=== PATIENT | male | born 1960 | race Two or more races ===

== ENCOUNTER 2021-05-26 10:29 | Inpatient (IN) | payer OTHER ==
[~2021-05-26] VITALS: Ht 175.3 cm; Wt 57.1 kg
[2021-05-26 11:33] LABS: Basophils # (auto) 0.1 10 ^3/uL (0-0.2); Basophils % (auto) 0.5 % (0.0-2.0); Eosinophils # (auto) 0 10 ^3/uL (0-0.8); Hematocrit 41.5 % (41.0-53.0); Hemoglobin 13.9 g/dL (13.5-17.5); Lymphocytes # (auto) 0.8 10 ^3/uL (0.4-5.4); Lymphocytes % (auto) 4.9 % (10.0-50.0); Mean Corpuscular Hemoglobin 32.2 pg (28.0-32.0); Mean Corpuscular Hgb Conc. 33.5 g/dL (32.0-36.0); Neutrophils # (auto) 14.6 10 ^3/uL (1.6-8.6); Neutrophils % (auto) 88.6 % (37.0-80.0); Red Blood Cells 4.32 10^6/uL (4.5-5.90); Red Cell Distribution Width 13.4 % (11.8-14.3); White Blood Cell 16.5 10^3/uL (4.4-10.8)
[2021-05-26 11:48] LABS: Albumin 1.8 g/dL (3.4-5.0); Calcium 8.5 mg/dL (8.5-10.1); Potassium 4.2 mmol/L (3.5-5.1)
[2021-05-26 12:09] LABS: BUN/Creatinine Ratio 10.6; Bilirubin, Total 0.9 mg/dL (0.2-1.0); Total Protein 7.2 g/dL (6.4-8.2)
[2021-05-26] MEDS ORDERED: VANCOMYCIN 1,500 MG in D5W 5% 250 ML IV ONE (12:45)
[2021-05-26] MEDS ORDERED: ASPirin 325 MG TAB PO ONE (12:45)
[2021-05-26] MEDS ORDERED: CLOPIDOGREL BISULFATE 75 MG TAB PO ONE (12:45)
[2021-05-26] MEDS ORDERED: PIPERACILLIN-TAZOB 3.375GM 100 ML IV ONE (12:45)
[2021-05-26] MEDS ORDERED: IOHEXOL 350 MG/ML 100ML IJ ONE (18:06)
[2021-05-26] MEDS ORDERED: NITROGLYCERIN 0.4 MG SL TAB SL PRN (18:15)
[2021-05-26] MEDS ORDERED: MORPHINE SULFATE INJECTION 2 MG/ML SYRG IV PRN (18:15)
[2021-05-26] MEDS ORDERED: VANCOMYCIN 1GM/250ML 500 ML IV ONE (22:50)
[2021-05-27] MEDS ORDERED: VANCOMYCIN PER PHARMACY 0 MG IV SCH (00:30)
[2021-05-27] MEDS: AZITHROMYCIN 500MG/ 250ML 250 ML IV SCH ×2 (02:59→22:30)
[2021-05-27 06:35] LABS: Urine Bacteria NONE SEEN /hpf (None Seen); Urine Blood Negative /uL (Negative); Urine Mucus FEW (None Seen); Urine WBC 4 /hpf (0 - 3)
[2021-05-27 06:40] LABS: Urine Specific Gravity > 1.050 (1.001-1.035)
[2021-05-27] MEDS: PIPERACILLIN-TAZOB 3.375GM 100 ML IV SCH ×4 (06:52→18:14)
[2021-05-27 07:30] LABS: Basophils # (auto) 0 10 ^3/uL (0-0.2); Basophils % (auto) 0.2 % (0.0-2.0); Eosinophils # (auto) 0 10 ^3/uL (0-0.8); Hematocrit 37.6 % (41.0-53.0); Hemoglobin 12.6 g/dL (13.5-17.5); Lymphocytes # (auto) 0.8 10 ^3/uL (0.4-5.4); Lymphocytes % (auto) 5.1 % (10.0-50.0); Mean Corpuscular Hgb Conc. 33.6 g/dL (32.0-36.0); Mean Corpuscular Volume 95.2 fL (80.0-100.0); Monocytes % (auto) 6.6 % (0.0-12.0); Neutrophils # (auto) 13.4 10 ^3/uL (1.6-8.6); Neutrophils % (auto) 88.1 % (37.0-80.0); Red Blood Cells 3.95 10^6/uL (4.5-5.90); Red Cell Distribution Width 13.4 % (11.8-14.3); White Blood Cell 15.2 10^3/uL (4.4-10.8)
[2021-05-27 07:52] LABS: BUN/Creatinine Ratio 11.6; Calcium 8.7 mg/dL (8.5-10.1); Potassium 4.2 mmol/L (3.5-5.1)
[2021-05-27] MEDS ORDERED: cefTRIAXone 1GM/50ML D5W 50 ML IV SCH (09:00)
[2021-05-27] MEDS: VANCOMYCIN 1GM/250ML 250 ML IV SCH ×2 (09:29→21:29)
[2021-05-27] MEDS ORDERED: AZITHROMYCIN 500MG/ 250ML 250 ML IV SCH (10:00)
[2021-05-27] MEDS ORDERED: SODIUM CHLORIDE 0.9% 1,000 ML IV ONE (10:30)
[2021-05-27] MEDS ORDERED: ONDANSETRON HCL 4 MG/2 ML VIAL IV ONE (11:30)
[2021-05-27] MEDS ORDERED: MORPHINE SULFATE INJECTION 2 MG/ML SYRG IV ONE (11:30)
[2021-05-27] MEDS ORDERED: MORPHINE SULFATE INJECTION 2 MG/ML SYRG ONE (11:31)
[2021-05-27] MEDS ORDERED: ONDANSETRON HCL 4 MG/2 ML VIAL ONE (11:31)
[2021-05-27 13:49] LABS: INR 1.37 (0.9-1.15); Partial Thromboplastin Time 27.8 sec (23.6-33.0)
[2021-05-27] MEDS ORDERED: DIGOXIN (250MCG/ML) 2 ML AMPULE IV ONE (15:00)
[2021-05-27] MEDS: FUROSEMIDE 40 MG/4 ML VIAL IV SCH (18:14)
[2021-05-27] MEDS ORDERED: HYDROcodone-ACET 10/325MG TAB PO PRN (18:30)
[2021-05-28] MEDS: PIPERACILLIN-TAZOB 3.375GM 100 ML IV SCH ×4 (01:00→18:11)
[2021-05-28 06:41] LABS: Basophils # (auto) 0 10 ^3/uL (0-0.2); Basophils % (auto) 0.2 % (0.0-2.0); Eosinophils # (auto) 0 10 ^3/uL (0-0.8); Hematocrit 33.1 % (41.0-53.0); Lymphocytes # (auto) 1.1 10 ^3/uL (0.4-5.4); Mean Corpuscular Hemoglobin 31.3 pg (28.0-32.0); Mean Corpuscular Hgb Conc. 33.1 g/dL (32.0-36.0); Mean Corpuscular Volume 94.7 fL (80.0-100.0); Monocytes # (auto) 0.9 10 ^3/uL (0-1.3); Monocytes % (auto) 5.9 % (0.0-12.0); Neutrophils # (auto) 13.2 10 ^3/uL (1.6-8.6); Neutrophils % (auto) 86.9 % (37.0-80.0); Red Cell Distribution Width 13.9 % (11.8-14.3); White Blood Cell 15.2 10^3/uL (4.4-10.8)
[2021-05-28 06:52] LABS: BUN/Creatinine Ratio 15.1; Calcium 7.8 mg/dL (8.5-10.1); Potassium 3.7 mmol/L (3.5-5.1)
[2021-05-28] MEDS: NOREPINEPHRINE 8 MG/250ML KIT 250 ML IV SCH ×3 (08:50→20:45)
[2021-05-28] MEDS: FUROSEMIDE 40 MG/4 ML VIAL IV SCH ×2 (08:51→18:23)
[2021-05-28] MEDS: VANCOMYCIN 1GM/250ML 250 ML IV SCH ×2 (09:10→21:00)
[2021-05-28] MEDS ORDERED: DOBUTamine 1000MCG/ML 250 ML IV SCH (14:30)
[2021-05-28] MEDS ORDERED: FUROSEMIDE 20 MG/2 ML VIAL IV ONE (14:45)
[2021-05-28] MEDS: DOBUTamine 1000MCG/ML 250 ML IV SCH (14:55)
[2021-05-28] MEDS: ACETAMINOPHEN 325 MG TAB PO PRN (20:51)
[2021-05-29] MEDS: PIPERACILLIN-TAZOB 3.375GM 100 ML IV SCH ×4 (05:59→17:58)
[2021-05-29] MEDS: FUROSEMIDE 40 MG/4 ML VIAL IV SCH ×2 (05:59→17:58)
[2021-05-29 06:40] LABS: Basophils # (auto) 0 10 ^3/uL (0-0.2); Basophils % (auto) 0.2 % (0.0-2.0); Eosinophils # (auto) 0 10 ^3/uL (0-0.8); Eosinophils % (auto) 0.1 % (0.0-7.0); Hemoglobin 12.8 g/dL (13.5-17.5); Lymphocytes # (auto) 0.7 10 ^3/uL (0.4-5.4); Mean Corpuscular Hemoglobin 31.6 pg (28.0-32.0); Mean Corpuscular Hgb Conc. 33.7 g/dL (32.0-36.0); Mean Corpuscular Volume 93.9 fL (80.0-100.0); Monocytes # (auto) 0.8 10 ^3/uL (0-1.3); Monocytes % (auto) 5.6 % (0.0-12.0); Neutrophils # (auto) 12.9 10 ^3/uL (1.6-8.6); Neutrophils % (auto) 89.1 % (37.0-80.0); Red Blood Cells 4.05 10^6/uL (4.5-5.90); Red Cell Distribution Width 13.5 % (11.8-14.3); White Blood Cell 14.5 10^3/uL (4.4-10.8)
[2021-05-29 07:02] LABS: BUN/Creatinine Ratio 12.2; Calcium 8.6 mg/dL (8.5-10.1)
[2021-05-29] MEDS: VANCOMYCIN 1GM/250ML 250 ML IV SCH ×2 (08:59→21:18)
[2021-05-29] MEDS ORDERED: SPIRONOLACTONE 25 MG TAB PO ONE (10:00)
[2021-05-29] MEDS ORDERED: DIGOXIN (250MCG/ML) 2 ML AMPULE IV ONE (10:00)
[2021-05-29] MEDS: NOREPINEPHRINE 8 MG/250ML KIT 250 ML IV SCH (10:27)
[2021-05-29] MEDS ORDERED: POTASSIUM CHL 20 Meq TABLET PO ONE (11:00)
[2021-05-29] MEDS ORDERED: LIDOCAINE 1% (LOCAL ANESTH.) PF 5ml SDV ID ONE (13:15)
[2021-05-29] MEDS: DOBUTamine 1000MCG/ML 250 ML IV SCH (15:24)
[2021-05-29] MEDS: SODIUM CHLOR 0.9% PF (SALINE LOCK) 10ML VIAL/SYR IV SCH (22:05)
[2021-05-30] MEDS: PIPERACILLIN-TAZOB 3.375GM 100 ML IV SCH ×4 (00:35→18:16)
[2021-05-30] MEDS: ACETAMINOPHEN 325 MG TAB PO PRN ×2 (00:36→23:06)
[2021-05-30] MEDS: FUROSEMIDE 40 MG/4 ML VIAL IV SCH ×2 (06:00→18:17)
[2021-05-30 07:23] LABS: Basophils # (auto) 0 10 ^3/uL (0-0.2); Basophils % (auto) 0.3 % (0.0-2.0); Eosinophils # (auto) 0 10 ^3/uL (0-0.8); Eosinophils % (auto) 0.4 % (0.0-7.0); Hematocrit 37.9 % (41.0-53.0); Hemoglobin 12.6 g/dL (13.5-17.5); Lymphocytes # (auto) 0.8 10 ^3/uL (0.4-5.4); Mean Corpuscular Hemoglobin 31.5 pg (28.0-32.0); Mean Corpuscular Hgb Conc. 33.2 g/dL (32.0-36.0); Mean Corpuscular Volume 94.8 fL (80.0-100.0); Monocytes # (auto) 0.7 10 ^3/uL (0-1.3); Neutrophils # (auto) 7.4 10 ^3/uL (1.6-8.6); Neutrophils % (auto) 82.3 % (37.0-80.0); Red Cell Distribution Width 13.6 % (11.8-14.3)
[2021-05-30 07:39] LABS: BUN/Creatinine Ratio 9.9; Calcium 7.9 mg/dL (8.5-10.1)
[2021-05-30 08:15] LABS: Potassium 2.9 mmol/L (3.5-5.1)
[2021-05-30] MEDS: VANCOMYCIN 1GM/250ML 250 ML IV SCH ×2 (09:00→20:59)
[2021-05-30] MEDS: SODIUM CHLOR 0.9% PF (SALINE LOCK) 10ML VIAL/SYR IV SCH ×2 (09:29→22:00)
[2021-05-30] MEDS ORDERED: POTASSIUM CHL 20 Meq TABLET PO ONE (09:30)
[2021-05-30] MEDS: POTASSIUM CHL 20MEQ/100ML 100 ML IV SCH ×2 (10:00→11:30)
[2021-05-30] MEDS: DOBUTamine 1000MCG/ML 250 ML IV SCH (14:49)
[2021-05-30] MEDS: NOREPINEPHRINE 8 MG/250ML KIT 250 ML IV SCH (20:45)
[2021-05-31] MEDS: PIPERACILLIN-TAZOB 3.375GM 100 ML IV SCH ×5 (01:30→23:17)
[2021-05-31] MEDS: FUROSEMIDE 40 MG/4 ML VIAL IV SCH ×2 (06:30→18:58)
[2021-05-31 07:19] LABS: Basophils # (auto) 0.1 10 ^3/uL (0-0.2); Basophils % (auto) 0.5 % (0.0-2.0); Eosinophils # (auto) 0.1 10 ^3/uL (0-0.8); Eosinophils % (auto) 1.3 % (0.0-7.0); Hemoglobin 14.1 g/dL (13.5-17.5); Lymphocytes # (auto) 0.9 10 ^3/uL (0.4-5.4); Mean Corpuscular Hemoglobin 31.3 pg (28.0-32.0); Mean Corpuscular Hgb Conc. 33.6 g/dL (32.0-36.0); Mean Corpuscular Volume 93.2 fL (80.0-100.0); Monocytes % (auto) 10.8 % (0.0-12.0); Neutrophils # (auto) 7.6 10 ^3/uL (1.6-8.6); Neutrophils % (auto) 78.4 % (37.0-80.0); Red Blood Cells 4.51 10^6/uL (4.5-5.90); Red Cell Distribution Width 13.6 % (11.8-14.3); White Blood Cell 9.7 10^3/uL (4.4-10.8)
[2021-05-31 07:32] LABS: Calcium 8.6 mg/dL (8.5-10.1)
[2021-05-31 07:36] LABS: BUN/Creatinine Ratio 10.7
[2021-05-31] MEDS: VANCOMYCIN 1GM/250ML 250 ML IV SCH ×2 (09:38→21:09)
[2021-05-31] MEDS: SODIUM CHLOR 0.9% PF (SALINE LOCK) 10ML VIAL/SYR IV SCH ×2 (10:24→21:23)
[2021-05-31] MEDS ORDERED: IOHEXOL 300 MG/ML 100ML BOTTLE IJ ONE ×2 (14:00→17:39)
[2021-05-31] MEDS: DOBUTamine 1000MCG/ML 250 ML IV SCH (14:45)
[2021-05-31] MEDS ORDERED: FUROSEMIDE 20 MG/2 ML VIAL ONE (18:53)
[2021-05-31] MEDS: NOREPINEPHRINE 8 MG/250ML KIT 250 ML IV SCH (20:45)
[2021-06-01] MEDS ORDERED: FUROSEMIDE 20 MG/2 ML VIAL ONE (04:55)
[2021-06-01] MEDS: FUROSEMIDE 40 MG/4 ML VIAL IV SCH ×2 (05:28→18:52)
[2021-06-01] MEDS: PIPERACILLIN-TAZOB 3.375GM 100 ML IV SCH ×3 (05:29→22:09)
[2021-06-01 08:09] LABS: Basophils # (auto) 0.1 10 ^3/uL (0-0.2); Basophils % (auto) 0.9 % (0.0-2.0); Eosinophils # (auto) 0.2 10 ^3/uL (0-0.8); Eosinophils % (auto) 2.1 % (0.0-7.0); Hematocrit 44.7 % (41.0-53.0); Hemoglobin 14.8 g/dL (13.5-17.5); Lymphocytes # (auto) 0.9 10 ^3/uL (0.4-5.4); Lymphocytes % (auto) 8.2 % (10.0-50.0); Mean Corpuscular Hgb Conc. 33.1 g/dL (32.0-36.0); Mean Corpuscular Volume 93.7 fL (80.0-100.0); Monocytes # (auto) 1.1 10 ^3/uL (0-1.3); Monocytes % (auto) 10.3 % (0.0-12.0); Neutrophils # (auto) 8.5 10 ^3/uL (1.6-8.6); Neutrophils % (auto) 78.5 % (37.0-80.0); Red Blood Cells 4.77 10^6/uL (4.5-5.90); Red Cell Distribution Width 13.6 % (11.8-14.3); White Blood Cell 10.8 10^3/uL (4.4-10.8)
[2021-06-01 08:30] LABS: Calcium 8.5 mg/dL (8.5-10.1); Potassium 4.4 mmol/L (3.5-5.1)
[2021-06-01 08:33] LABS: BUN/Creatinine Ratio 7.2
[2021-06-01] MEDS: VANCOMYCIN 1GM/250ML 250 ML IV SCH (09:00)
[2021-06-01] MEDS: SODIUM CHLOR 0.9% PF (SALINE LOCK) 10ML VIAL/SYR IV SCH ×2 (09:33→22:09)
[2021-06-01] MEDS ORDERED: HEPARIN SODIUM (PORCINE) 5000 UNITS/ML 1ML VIAL IV ONE ×2 (10:45→19:15)
[2021-06-01 11:48] LABS: INR 1.14 (0.9-1.15); Partial Thromboplastin Time 25.4 sec (23.6-33.0)
[2021-06-01] MEDS: HEPARIN DRIP/D5W 100UNITS/ML 250 ML IV SCH (11:51)
[2021-06-01] MEDS: MIDODRINE HCL 10 MG TAB PO SCH ×2 (12:32→18:35)
[2021-06-01 13:23] LABS: Basophils # (auto) 0.1 10 ^3/uL (0-0.2); Eosinophils # (auto) 0.2 10 ^3/uL (0-0.8); Hematocrit 46.1 % (41.0-53.0); Hemoglobin 15.2 g/dL (13.5-17.5); Lymphocytes % (auto) 9.5 % (10.0-50.0); Mean Corpuscular Hemoglobin 30.7 pg (28.0-32.0); Monocytes % (auto) 9.8 % (0.0-12.0); Neutrophils # (auto) 8.1 10 ^3/uL (1.6-8.6); Neutrophils % (auto) 77.7 % (37.0-80.0); Nucleated Red Blood Cells % 0.1 %; Red Blood Cells 4.95 10^6/uL (4.5-5.90); Red Cell Distribution Width 13.6 % (11.8-14.3); White Blood Cell 10.4 10^3/uL (4.4-10.8)
[2021-06-01] MEDS: DOBUTamine 1000MCG/ML 250 ML IV SCH ×2 (14:47→23:19)
[2021-06-01 18:34] LABS: INR 1.12 (0.9-1.15); Partial Thromboplastin Time 25.4 sec (23.6-33.0)
[2021-06-01] MEDS: NOREPINEPHRINE 8 MG/250ML KIT 250 ML IV SCH (19:35)
[2021-06-02] VITALS (53 sets, daily range): BP systolic 77–139; BP diastolic 34–93
[2021-06-02 02:22] LABS: INR 1.12 (0.9-1.15); Partial Thromboplastin Time 24.7 sec (23.6-33.0)
[2021-06-02] MEDS: MIDODRINE HCL 10 MG TAB PO SCH ×3 (06:00→18:00)
[2021-06-02] MEDS: PIPERACILLIN-TAZOB 3.375GM 100 ML IV SCH ×3 (06:28→21:55)
[2021-06-02] MEDS: FUROSEMIDE 40 MG/4 ML VIAL IV SCH ×2 (06:29→18:00)
[2021-06-02] MEDS ORDERED: SUCCINYLCHOLINE CHLORIDE 20 MG/ML 10ML VIAL IV ONE (06:53)
[2021-06-02] MEDS ORDERED: ROCURONIUM 10MG/ML 10ML VIAL IV ONE (06:53)
[2021-06-02] MEDS ORDERED: HYDROmorphone HCL 2 MG/ML VL ONE (07:11)
[2021-06-02] MEDS ORDERED: DexAMETHasone SOD PHOS 10MG/1ML VIAL INJ ONE (07:12)
[2021-06-02] MEDS ORDERED: fentaNYL CITRATE 10 ML ONE (07:12)
[2021-06-02] MEDS ORDERED: MIDAZOLAM HCL 2MG/2ML 2ml VIAL (1mg/ml) ONE ×2 (07:12)
[2021-06-02 07:48] LABS: Basophils # (auto) 0.1 10 ^3/uL (0-0.2); Basophils % (auto) 0.8 % (0.0-2.0); Eosinophils # (auto) 0.2 10 ^3/uL (0-0.8); Eosinophils % (auto) 2.5 % (0.0-7.0); Hematocrit 43.9 % (41.0-53.0); Hemoglobin 14.4 g/dL (13.5-17.5); Lymphocytes # (auto) 0.9 10 ^3/uL (0.4-5.4); Lymphocytes % (auto) 9.8 % (10.0-50.0); Mean Corpuscular Hemoglobin 30.7 pg (28.0-32.0); Mean Corpuscular Hgb Conc. 32.9 g/dL (32.0-36.0); Mean Corpuscular Volume 93.6 fL (80.0-100.0); Monocytes # (auto) 0.9 10 ^3/uL (0-1.3); Monocytes % (auto) 9.5 % (0.0-12.0); Neutrophils # (auto) 7.4 10 ^3/uL (1.6-8.6); Neutrophils % (auto) 77.4 % (37.0-80.0); Red Cell Distribution Width 13.7 % (11.8-14.3); White Blood Cell 9.5 10^3/uL (4.4-10.8)
[2021-06-02 08:04] LABS: INR 1.08 (0.9-1.15); Partial Thromboplastin Time 22.1 sec (23.6-33.0)
[2021-06-02 08:13] LABS: Calcium 8.7 mg/dL (8.5-10.1); Potassium 3.8 mmol/L (3.5-5.1)
[2021-06-02 08:16] LABS: BUN/Creatinine Ratio 7.6
[2021-06-02] MEDS ORDERED: BUPIVACAINE 0.25% INJ 50ML VIAL ONE (09:51)
[2021-06-02] MEDS: SODIUM CHLOR 0.9% PF (SALINE LOCK) 10ML VIAL/SYR IV SCH ×2 (10:00→21:55)
[2021-06-02] MEDS: HEPARIN DRIP/D5W 100UNITS/ML 250 ML IV SCH ×2 (10:34→19:22)
[2021-06-02] MEDS ORDERED: POVIDONE IODINE 10 % TOPICAL OINT 30GM TOP ONE (10:57)
[2021-06-02] MEDS ORDERED: NOREPINEPHRINE 8 MG/250ML KIT 250 ML IV ONE ×3 (11:04→21:26)
[2021-06-02 16:32] LABS: Basophils # (auto) 0 10 ^3/uL (0-0.2); Basophils % (auto) 0.2 % (0.0-2.0); Lymphocytes # (auto) 0.5 10 ^3/uL (0.4-5.4); Lymphocytes % (auto) 2.4 % (10.0-50.0); Mean Corpuscular Volume 92.9 fL (80.0-100.0); Neutrophils % (auto) 95.7 % (37.0-80.0); Red Cell Distribution Width 13.9 % (11.8-14.3)
[2021-06-02 16:34] LABS: Eosinophils # (auto) 0 10 ^3/uL (0-0.8); Eosinophils % (auto) 0.1 % (0.0-7.0); Hematocrit 42.9 % (41.0-53.0); Hemoglobin 14.1 g/dL (13.5-17.5); Mean Corpuscular Hemoglobin 30.4 pg (28.0-32.0); Mean Corpuscular Hgb Conc. 32.7 g/dL (32.0-36.0); Monocytes # (auto) 0.4 10 ^3/uL (0-1.3); Monocytes % (auto) 1.6 % (0.0-12.0); Neutrophils # (auto) 20.9 10 ^3/uL (1.6-8.6); Red Blood Cells 4.62 10^6/uL (4.5-5.90); White Blood Cell 21.8 10^3/uL (4.4-10.8)
[2021-06-02 16:48] LABS: Albumin 1.9 g/dL (3.4-5.0); BUN/Creatinine Ratio 8.7; Calcium 8.5 mg/dL (8.5-10.1); Potassium 4.1 mmol/L (3.5-5.1)
[2021-06-02 16:51] LABS: Bilirubin, Total 0.6 mg/dL (0.2-1.0)
[2021-06-02] MEDS: MIDAZOLAM DRIP 50 mg/50mL 50 ML IV SCH (16:52)
[2021-06-02] MEDS: fentaNYL Drip 2500mCg/250mlNS 250 ML IV SCH (16:52)
[2021-06-02] MEDS ORDERED: FUROSEMIDE 40 MG/4 ML VIAL ONE (19:27)
[2021-06-02] MEDS ORDERED: DOBUTamine 1000MCG/ML 250 ML IV ONE (21:26)
[2021-06-02] MEDS ORDERED: PIPERACILLIN-TAZOB 3.375GM 100 ML IV ONE (21:27)
[2021-06-02] MEDS: NOREPINEPHRINE 8 MG/250ML KIT 250 ML IV SCH (21:55)
[2021-06-03] VITALS (103 sets, daily range): BP systolic 79–141; BP diastolic 25–87
[2021-06-03] MEDS: fentaNYL Drip 2500mCg/250mlNS 250 ML IV SCH ×2 (01:37→13:38)
[2021-06-03 02:01] LABS: INR 1.23 (0.9-1.15)
[2021-06-03] MEDS: DOBUTamine 1000MCG/ML 250 ML IV SCH (02:01)
[2021-06-03] MEDS: MIDAZOLAM DRIP 50 mg/50mL 50 ML IV SCH (02:03)
[2021-06-03 02:04] LABS: Partial Thromboplastin Time > 139.0 sec (23.6-33.0)
[2021-06-03] MEDS ORDERED: NOREPINEPHRINE 8 MG/250ML KIT 250 ML IV ONE (03:03)
[2021-06-03 04:21] LABS: Basophils # (auto) 0 10 ^3/uL (0-0.2); Basophils % (auto) 0.1 % (0.0-2.0); Eosinophils # (auto) 0 10 ^3/uL (0-0.8); Hematocrit 32.8 % (41.0-53.0); Hemoglobin 10.7 g/dL (13.5-17.5); Lymphocytes # (auto) 0.9 10 ^3/uL (0.4-5.4); Lymphocytes % (auto) 5.8 % (10.0-50.0); Mean Corpuscular Hemoglobin 30.5 pg (28.0-32.0); Mean Corpuscular Hgb Conc. 32.5 g/dL (32.0-36.0); Monocytes # (auto) 1.1 10 ^3/uL (0-1.3); Monocytes % (auto) 7.1 % (0.0-12.0); Neutrophils # (auto) 13.1 10 ^3/uL (1.6-8.6); Red Blood Cells 3.49 10^6/uL (4.5-5.90); Red Cell Distribution Width 13.9 % (11.8-14.3); White Blood Cell 15.1 10^3/uL (4.4-10.8)
[2021-06-03 04:40] LABS: Potassium 3.4 mmol/L (3.5-5.1)
[2021-06-03 04:48] LABS: BUN/Creatinine Ratio 10.1; Calcium 6.6 mg/dL (8.5-10.1)
[2021-06-03] MEDS ORDERED: FUROSEMIDE 40 MG/4 ML VIAL ONE (05:45)
[2021-06-03] MEDS ORDERED: PIPERACILLIN-TAZOB 3.375GM 100 ML IV ONE (05:45)
[2021-06-03] MEDS: PIPERACILLIN-TAZOB 3.375GM 100 ML IV SCH ×3 (06:10→22:04)
[2021-06-03] MEDS: FUROSEMIDE 40 MG/4 ML VIAL IV SCH ×2 (06:11→17:33)
[2021-06-03 08:09] LABS: INR 1.27 (0.9-1.15); Partial Thromboplastin Time 59.8 sec (23.6-33.0)
[2021-06-03 09:48] LABS: Hemoglobin 11.7 g/dL (13.5-17.5)
[2021-06-03] MEDS: PANTOPRAZOLE 40 MG/10 ML VIAL INJ IV SCH (12:01)
[2021-06-03] MEDS: SODIUM CHLOR 0.9% PF (SALINE LOCK) 10ML VIAL/SYR IV SCH ×2 (12:02→22:04)
[2021-06-03] MEDS: MIDODRINE HCL 10 MG TAB PO SCH ×2 (12:09→17:33)
[2021-06-03 14:03] LABS: INR 1.16 (0.9-1.15); Partial Thromboplastin Time 67.9 sec (23.6-33.0)
[2021-06-03] MEDS ORDERED: POTASSIUM CHL 20 Meq TABLET PO ONE (14:15)
[2021-06-03] MEDS ORDERED: POTASSIUM EFFERVESENT TAB 25 MEQ GT ONE (15:45)
[2021-06-03] MEDS: NOREPINEPHRINE 8 MG/250ML KIT 250 ML IV SCH (16:51)
[2021-06-03 21:05] LABS: INR 1.08 (0.9-1.15); Partial Thromboplastin Time 24.8 sec (23.6-33.0)
[2021-06-03] MEDS: ALBUMIN 25% 100 ML IV SCH (22:05)
[2021-06-03 22:48] LABS: INR 1.07 (0.9-1.15); Partial Thromboplastin Time 24.2 sec (23.6-33.0)
[2021-06-03] MEDS ORDERED: HEPARIN SODIUM (PORCINE) 5000 UNITS/ML 1ML VIAL ONE (23:14)
[2021-06-04] VITALS (103 sets, daily range): BP systolic 84–134; BP diastolic 40–78
[2021-06-04] MEDS: HEPARIN DRIP/D5W 100UNITS/ML 250 ML IV SCH ×2 (00:29→07:00)
[2021-06-04] MEDS: NOREPINEPHRINE 8 MG/250ML KIT 250 ML IV SCH (00:30)
[2021-06-04 05:23] LABS: Basophils # (auto) 0.1 10 ^3/uL (0-0.2); Basophils % (auto) 0.4 % (0.0-2.0); Eosinophils # (auto) 0.1 10 ^3/uL (0-0.8); Eosinophils % (auto) 0.5 % (0.0-7.0); Hematocrit 28.3 % (41.0-53.0); Hemoglobin 9.1 g/dL (13.5-17.5); Lymphocytes # (auto) 1.2 10 ^3/uL (0.4-5.4); Lymphocytes % (auto) 10.1 % (10.0-50.0); Mean Corpuscular Hemoglobin 30.3 pg (28.0-32.0); Mean Corpuscular Hgb Conc. 32.2 g/dL (32.0-36.0); Mean Corpuscular Volume 94.3 fL (80.0-100.0); Monocytes % (auto) 8.5 % (0.0-12.0); Neutrophils # (auto) 9.6 10 ^3/uL (1.6-8.6); Neutrophils % (auto) 80.5 % (37.0-80.0); Red Cell Distribution Width 13.7 % (11.8-14.3); White Blood Cell 11.9 10^3/uL (4.4-10.8)
[2021-06-04 05:42] LABS: BUN/Creatinine Ratio 13.7
[2021-06-04] MEDS: PIPERACILLIN-TAZOB 3.375GM 100 ML IV SCH ×3 (05:44→22:05)
[2021-06-04] MEDS: MIDODRINE HCL 10 MG TAB PO SCH ×3 (05:45→18:02)
[2021-06-04] MEDS: FUROSEMIDE 40 MG/4 ML VIAL IV SCH (05:45)
[2021-06-04 06:05] LABS: Partial Thromboplastin Time > 139.0 sec (23.6-33.0)
[2021-06-04] MEDS: PANTOPRAZOLE 40 MG/10 ML VIAL INJ IV SCH (10:10)
[2021-06-04] MEDS: ALBUMIN 25% 100 ML IV SCH ×2 (10:10→22:06)
[2021-06-04] MEDS: SODIUM CHLOR 0.9% PF (SALINE LOCK) 10ML VIAL/SYR IV SCH ×2 (10:17→22:04)
[2021-06-04] MEDS: MIDAZOLAM DRIP 50 mg/50mL 50 ML IV SCH (13:33)
[2021-06-04 13:41] LABS: INR 1.21 (0.9-1.15)
[2021-06-04] MEDS ORDERED: ONDANSETRON HCL 4 MG/2 ML VIAL IV PRN (13:45)
[2021-06-04 13:55] LABS: Partial Thromboplastin Time > 139.0 sec (23.6-33.0)
[2021-06-04] MEDS: ACETAMINOPHEN 325 MG TAB PO PRN ×2 (13:56→18:30)
[2021-06-04 16:09] LABS: Hematocrit 20.6 % (41.0-53.0)
[2021-06-04] MEDS: MORPHINE SULFATE INJECTION 2 MG/ML SYRG IV PRN (17:49)
[2021-06-04] MEDS: DOBUTamine 1000MCG/ML 250 ML IV SCH (18:03)
[2021-06-05] VITALS (98 sets, daily range): BP systolic 95–135; BP diastolic 40–63
[2021-06-05] MEDS: MORPHINE SULFATE INJECTION 2 MG/ML SYRG IV PRN ×2 (04:04→15:33)
[2021-06-05 04:44] LABS: Basophils # (auto) 0.1 10 ^3/uL (0-0.2); Basophils % (auto) 0.9 % (0.0-2.0); Eosinophils # (auto) 0.1 10 ^3/uL (0-0.8); Eosinophils % (auto) 0.9 % (0.0-7.0); Hematocrit 23.6 % (41.0-53.0); Hemoglobin 8.1 g/dL (13.5-17.5); Lymphocytes # (auto) 0.5 10 ^3/uL (0.4-5.4); Lymphocytes % (auto) 5.5 % (10.0-50.0); Mean Corpuscular Hemoglobin 32.1 pg (28.0-32.0); Mean Corpuscular Hgb Conc. 34.5 g/dL (32.0-36.0); Mean Corpuscular Volume 92.9 fL (80.0-100.0); Monocytes # (auto) 0.5 10 ^3/uL (0-1.3); Monocytes % (auto) 6.1 % (0.0-12.0); Neutrophils # (auto) 7.8 10 ^3/uL (1.6-8.6); Neutrophils % (auto) 86.6 % (37.0-80.0); Red Blood Cells 2.54 10^6/uL (4.5-5.90)
[2021-06-05 05:18] LABS: BUN/Creatinine Ratio 12.5; Potassium 3.4 mmol/L (3.5-5.1)
[2021-06-05 05:19] LABS: Calcium 7.8 mg/dL (8.5-10.1)
[2021-06-05] MEDS: MIDODRINE HCL 10 MG TAB PO SCH ×3 (06:08→18:04)
[2021-06-05] MEDS: PIPERACILLIN-TAZOB 3.375GM 100 ML IV SCH ×4 (06:09→22:25)
[2021-06-05] MEDS: DOBUTamine 1000MCG/ML 250 ML IV SCH (06:33)
[2021-06-05] MEDS: NOREPINEPHRINE 8 MG/250ML KIT 250 ML IV SCH (06:34)
[2021-06-05] MEDS: HEPARIN DRIP/D5W 100UNITS/ML 250 ML IV SCH (08:26)
[2021-06-05] MEDS: PANTOPRAZOLE 40 MG/10 ML VIAL INJ IV SCH (10:14)
[2021-06-05] MEDS: FUROSEMIDE 40 MG/4 ML VIAL IV SCH (10:14)
[2021-06-05] MEDS: SODIUM CHLOR 0.9% PF (SALINE LOCK) 10ML VIAL/SYR IV SCH ×2 (10:16→22:25)
[2021-06-05] MEDS: ALBUMIN 25% 100 ML IV SCH ×2 (10:16→22:25)
[2021-06-05 11:57] LABS: Hemoglobin 7.9 g/dL (13.5-17.5)
[2021-06-05 12:00] LABS: Hematocrit 22.5 % (41.0-53.0)
[2021-06-05] MEDS: MIDAZOLAM DRIP 50 mg/50mL 50 ML IV SCH (13:20)
[2021-06-05] MEDS: fentaNYL Drip 2500mCg/250mlNS 250 ML IV SCH (13:20)
[2021-06-05] MEDS ORDERED: VANCOMYCIN 1GM/250ML 250 ML IV ONE (14:45)
[2021-06-05 14:55] LABS: INR 1.13 (0.9-1.15); Partial Thromboplastin Time 50.4 sec (23.6-33.0)
[2021-06-05 21:42] LABS: INR 1.12 (0.9-1.15); Partial Thromboplastin Time 67.8 sec (23.6-33.0)
[2021-06-06] VITALS (93 sets, daily range): BP systolic 90–126; BP diastolic 41–57
[2021-06-06 00:33] LABS: Hemoglobin 7.3 g/dL (13.5-17.5)
[2021-06-06] MEDS: HEPARIN DRIP/D5W 100UNITS/ML 250 ML IV SCH (04:00)
[2021-06-06 04:16] LABS: Lymphocytes # (auto) 0.6 10 ^3/uL (0.4-5.4); Mean Corpuscular Hgb Conc. 34.4 g/dL (32.0-36.0); Monocytes # (auto) 0.5 10 ^3/uL (0-1.3)
[2021-06-06 04:18] LABS: Basophils # (auto) 0 10 ^3/uL (0-0.2); Basophils % (auto) 0.4 % (0.0-2.0); Eosinophils # (auto) 0.2 10 ^3/uL (0-0.8); Eosinophils % (auto) 2.2 % (0.0-7.0); Hematocrit 20.7 % (41.0-53.0); Hemoglobin 7.1 g/dL (13.5-17.5); Lymphocytes % (auto) 8.6 % (10.0-50.0); Mean Corpuscular Hemoglobin 31.8 pg (28.0-32.0); Mean Corpuscular Volume 92.4 fL (80.0-100.0); Monocytes % (auto) 6.7 % (0.0-12.0); Neutrophils # (auto) 6.2 10 ^3/uL (1.6-8.6); Neutrophils % (auto) 82.1 % (37.0-80.0); Red Blood Cells 2.24 10^6/uL (4.5-5.90); Red Cell Distribution Width 13.7 % (11.8-14.3); White Blood Cell 7.5 10^3/uL (4.4-10.8)
[2021-06-06 04:35] LABS: INR 1.11 (0.9-1.15); Partial Thromboplastin Time 68.7 sec (23.6-33.0)
[2021-06-06 04:48] LABS: Potassium 3.4 mmol/L (3.5-5.1)
[2021-06-06 05:02] LABS: BUN/Creatinine Ratio 11.1; Calcium 8.3 mg/dL (8.5-10.1)
[2021-06-06] MEDS: MIDODRINE HCL 10 MG TAB PO SCH ×3 (06:28→18:00)
[2021-06-06] MEDS: PIPERACILLIN-TAZOB 3.375GM 100 ML IV SCH ×3 (06:28→22:01)
[2021-06-06] MEDS: PANTOPRAZOLE 40 MG/10 ML VIAL INJ IV SCH (09:40)
[2021-06-06] MEDS: ALBUMIN 25% 100 ML IV SCH (09:40)
[2021-06-06] MEDS: FUROSEMIDE 40 MG/4 ML VIAL IV SCH (09:40)
[2021-06-06] MEDS: SODIUM CHLOR 0.9% PF (SALINE LOCK) 10ML VIAL/SYR IV SCH ×2 (09:41→22:00)
[2021-06-06 11:53] LABS: Basophils # (auto) 0 10 ^3/uL (0-0.2); Eosinophils # (auto) 0.2 10 ^3/uL (0-0.8); Hematocrit 21.5 % (41.0-53.0); Hemoglobin 7.4 g/dL (13.5-17.5); Lymphocytes # (auto) 0.6 10 ^3/uL (0.4-5.4); Mean Corpuscular Hemoglobin 31.6 pg (28.0-32.0); Monocytes # (auto) 0.7 10 ^3/uL (0-1.3); Red Cell Distribution Width 13.8 % (11.8-14.3); White Blood Cell 8.5 10^3/uL (4.4-10.8)
[2021-06-06 11:56] LABS: Basophils % (auto) 0.4 % (0.0-2.0); Eosinophils % (auto) 2.6 % (0.0-7.0); Lymphocytes % (auto) 6.7 % (10.0-50.0); Mean Corpuscular Hgb Conc. 34.4 g/dL (32.0-36.0); Mean Corpuscular Volume 92.1 fL (80.0-100.0); Monocytes % (auto) 8.1 % (0.0-12.0); Neutrophils % (auto) 82.2 % (37.0-80.0); Red Blood Cells 2.34 10^6/uL (4.5-5.90)
[2021-06-06] MEDS: POTASSIUM CHL 20MEQ/100ML 100 ML IV SCH ×3 (13:45→17:45)
[2021-06-06] MEDS: DOBUTamine 1000MCG/ML 250 ML IV SCH (17:24)
[2021-06-06] MEDS: NOREPINEPHRINE 8 MG/250ML KIT 250 ML IV SCH (20:45)
[2021-06-06] MEDS: ACETAMINOPHEN 325 MG TAB PO PRN (22:01)
[2021-06-07] VITALS (35 sets, daily range): BP systolic 90–120; BP diastolic 46–77
[2021-06-07] MEDS ORDERED: HYDROcodone-ACET 10/325MG TAB PO PRN (00:15)
[2021-06-07] MEDS ORDERED: ACETAMINOPHEN 325 MG TAB PO PRN (00:15)
[2021-06-07] MEDS: HYDROcodone-ACET 10/325MG TAB PO PRN ×2 (00:40→17:51)
[2021-06-07] MEDS: HEPARIN DRIP/D5W 100UNITS/ML 250 ML IV SCH (03:25)
[2021-06-07 05:59] LABS: Basophils # (auto) 0 10 ^3/uL (0-0.2); Basophils % (auto) 0.5 % (0.0-2.0); Eosinophils # (auto) 0.3 10 ^3/uL (0-0.8); Eosinophils % (auto) 3.3 % (0.0-7.0); Hematocrit 22.4 % (41.0-53.0); Hemoglobin 7.5 g/dL (13.5-17.5); Lymphocytes % (auto) 10.3 % (10.0-50.0); Mean Corpuscular Hemoglobin 31.2 pg (28.0-32.0); Mean Corpuscular Hgb Conc. 33.6 g/dL (32.0-36.0); Mean Corpuscular Volume 92.8 fL (80.0-100.0); Monocytes # (auto) 0.9 10 ^3/uL (0-1.3); Monocytes % (auto) 9.1 % (0.0-12.0); Neutrophils # (auto) 7.5 10 ^3/uL (1.6-8.6); Neutrophils % (auto) 76.8 % (37.0-80.0); Nucleated Red Blood Cells % 0.1 %; Red Blood Cells 2.42 10^6/uL (4.5-5.90); Red Cell Distribution Width 13.9 % (11.8-14.3); White Blood Cell 9.8 10^3/uL (4.4-10.8)
[2021-06-07 06:19] LABS: INR 1.1 (0.9-1.15); Partial Thromboplastin Time 54.2 sec (23.6-33.0)
[2021-06-07] MEDS: PIPERACILLIN-TAZOB 3.375GM 100 ML IV SCH ×3 (06:32→22:00)
[2021-06-07] MEDS: MIDODRINE HCL 10 MG TAB PO SCH ×3 (06:32→17:50)
[2021-06-07 06:43] LABS: Potassium 3.8 mmol/L (3.5-5.1)
[2021-06-07 06:57] LABS: Albumin 2.6 g/dL (3.4-5.0); BUN/Creatinine Ratio 9.3; Bilirubin, Total 0.8 mg/dL (0.2-1.0); Calcium 8.5 mg/dL (8.5-10.1); Total Protein 5.9 g/dL (6.4-8.2)
[2021-06-07] MEDS: SODIUM CHLOR 0.9% PF (SALINE LOCK) 10ML VIAL/SYR IV SCH ×2 (10:28→22:00)
[2021-06-07] MEDS: PANTOPRAZOLE 40 MG/10 ML VIAL INJ IV SCH (10:28)
[2021-06-07] MEDS: FUROSEMIDE 40 MG/4 ML VIAL IV SCH (10:28)
[2021-06-07] MEDS ORDERED: VANCOMYCIN 1GM/250ML 250 ML IV ONE (17:00)
[2021-06-08] VITALS (7 sets, daily range): BP systolic 88–136; BP diastolic 47–69
[2021-06-08] MEDS: MIDODRINE HCL 10 MG TAB PO SCH ×3 (06:31→18:00)
[2021-06-08] MEDS: PIPERACILLIN-TAZOB 3.375GM 100 ML IV SCH ×3 (06:32→21:09)
[2021-06-08 06:44] LABS: Basophils # (auto) 0.1 10 ^3/uL (0-0.2); Basophils % (auto) 0.6 % (0.0-2.0); Eosinophils # (auto) 0.4 10 ^3/uL (0-0.8); Eosinophils % (auto) 3.5 % (0.0-7.0); Hematocrit 25.4 % (41.0-53.0); Hemoglobin 8.5 g/dL (13.5-17.5); Lymphocytes % (auto) 8.3 % (10.0-50.0); Mean Corpuscular Hemoglobin 31.1 pg (28.0-32.0); Mean Corpuscular Hgb Conc. 33.4 g/dL (32.0-36.0); Mean Corpuscular Volume 93.1 fL (80.0-100.0); Monocytes # (auto) 0.9 10 ^3/uL (0-1.3); Monocytes % (auto) 7.7 % (0.0-12.0); Neutrophils # (auto) 9.7 10 ^3/uL (1.6-8.6); Neutrophils % (auto) 79.9 % (37.0-80.0); Nucleated Red Blood Cells % 0.1 %; Red Blood Cells 2.73 10^6/uL (4.5-5.90); Red Cell Distribution Width 14.3 % (11.8-14.3); White Blood Cell 12.2 10^3/uL (4.4-10.8)
[2021-06-08 06:49] LABS: INR 1.1 (0.9-1.15); Partial Thromboplastin Time 33.9 sec (23.6-33.0)
[2021-06-08 06:54] LABS: Albumin 2.5 g/dL (3.4-5.0); Calcium 8.4 mg/dL (8.5-10.1); Potassium 3.6 mmol/L (3.5-5.1)
[2021-06-08 06:59] LABS: BUN/Creatinine Ratio 8.6; Bilirubin, Total 0.8 mg/dL (0.2-1.0); Total Protein 5.5 g/dL (6.4-8.2)
[2021-06-08] MEDS ORDERED: HEPARIN SODIUM (PORCINE) 5000 UNITS/ML 1ML VIAL IV ONE (08:00)
[2021-06-08] MEDS ORDERED: HEPARIN DRIP/D5W 100UNITS/ML 250 ML IV SCH (08:05)
[2021-06-08] MEDS ORDERED: AMOX500T86 PO (09:13)
[2021-06-08] MEDS ORDERED: POTA1TAB4 PO (09:13)
[2021-06-08] MEDS ORDERED: ACET325T10 PO (09:13)
[2021-06-08] MEDS ORDERED: FURO1TAB33 PO (09:13)
[2021-06-08] MEDS ORDERED: MID10T PO (09:13)
[2021-06-08] MEDS: FUROSEMIDE 40 MG/4 ML VIAL IV SCH (10:00)
[2021-06-08] MEDS: PANTOPRAZOLE 40 MG/10 ML VIAL INJ IV SCH (10:00)
[2021-06-08] MEDS: SODIUM CHLOR 0.9% PF (SALINE LOCK) 10ML VIAL/SYR IV SCH ×2 (10:00→21:09)
[2021-06-08 14:45] LABS: INR 1.13 (0.9-1.15); Partial Thromboplastin Time 56.5 sec (23.6-33.0)
[2021-06-08 20:10] LABS: INR 1.12 (0.9-1.15)
[2021-06-08] MEDS: HEPARIN DRIP/D5W 100UNITS/ML 250 ML IV SCH (21:00)
[2021-06-08] MEDS: HYDROcodone-ACET 10/325MG TAB PO PRN (21:11)
[2021-06-09] MEDS: HEPARIN DRIP/D5W 100UNITS/ML 250 ML IV SCH ×2 (01:18→12:11)
[2021-06-09 02:19] LABS: INR 1.13 (0.9-1.15); Partial Thromboplastin Time 67.3 sec (23.6-33.0)
[2021-06-09] MEDS: PIPERACILLIN-TAZOB 3.375GM 100 ML IV SCH (05:21)
[2021-06-09] MEDS: MIDODRINE HCL 10 MG TAB PO SCH ×2 (05:41→12:07)
[2021-06-09 06:36] VITALS: BP_SYST 157; BP_SYST 98; BP_DIAS 56; BP_DIAS 87
[2021-06-09 07:01] LABS: INR 1.1 (0.9-1.15); Partial Thromboplastin Time 53.5 sec (23.6-33.0)
[2021-06-09 09:00] VITALS: BP 105/39
[2021-06-09] MEDS ORDERED: METO25TA36 PO (09:20)
[2021-06-09] MEDS ORDERED: LISI-275 PO (09:20)
[2021-06-09] MEDS ORDERED: APIX5TAB4 PO (09:25)
[2021-06-09] MEDS ORDERED: VANCOMYCIN 1GM/250ML 250 ML IV SCH (09:30)
[2021-06-09] MEDS: PANTOPRAZOLE 40 MG/10 ML VIAL INJ IV SCH (09:41)
[2021-06-09] MEDS: FUROSEMIDE 40 MG/4 ML VIAL IV SCH (09:42)
[2021-06-09] MEDS: SODIUM CHLOR 0.9% PF (SALINE LOCK) 10ML VIAL/SYR IV SCH (09:42)
[2021-06-09] MEDS ORDERED: SPIRONOLACTONE 25 MG TAB PO SCH (10:00)
[2021-06-09 11:54] LABS: INR 1.08 (0.9-1.15); Partial Thromboplastin Time 61.1 sec (23.6-33.0)
[2021-06-09 13:00] VITALS: BP 123/66
== END 2021-06-09 16:45 | disposition hospice, home (50) | DRG 121 ==
LOC: ER 10:29 → EDBD 10:29 → TELE 18:06 → UNDOADMOB 18:06 → TELE-WESTW 05-27 10:33 → TELE 05-27 10:33 → TELE-WESTW 05-27 11:55 → TELE 05-27 11:55 → TELE-WESTW 05-27 23:10 → TELE 05-28 05:47 → TELE-WESTW 05-28 05:47 → INTOOBSV 05-28 14:38 → OBSVTOIN 05-28 14:38 → ICU WEST 06-02 10:52 → TELE-WESTW 06-08 01:25
PROVIDERS: ADMIT Hospitalist; ATTEND Hospitalist
PROC: 0W993ZX Drainage of Right Pleural Cavity, Percutaneous Approach, Diagnostic (ICD-10-PCS; 2021-05-27)
PROC: 0W9930Z Drainage of Right Pleural Cavity with Drainage Device, Percutaneous Approach (ICD-10-PCS; 2021-05-27)
PROC: 02H633Z Insertion of Infusion Device into Right Atrium, Percutaneous Approach (ICD-10-PCS; 2021-05-29)
PROC: B5181ZA Fluoroscopy of Superior Vena Cava using Low Osmolar Contrast, Guidance (ICD-10-PCS; 2021-05-29)
PROC: 5A1945Z Respiratory Ventilation, 24-96 Consecutive Hours (ICD-10-PCS; 2021-06-02)
PROC: 0BBN0ZX Excision of Right Pleura, Open Approach, Diagnostic (ICD-10-PCS; 2021-06-02)
PROC: 0BH17EZ Insertion of Endotracheal Airway into Trachea, Via Natural or Artificial Opening (ICD-10-PCS; 2021-06-02)
PROC: 0BNK0ZZ Release Right Lung, Open Approach (ICD-10-PCS; 2021-06-02)
PROC: 0BBC0ZX Excision of Right Upper Lung Lobe, Open Approach, Diagnostic (ICD-10-PCS; principal; 2021-06-02 08:53)
PROC: 30233N1 Transfusion of Nonautologous Red Blood Cells into Peripheral Vein, Percutaneous Approach (ICD-10-PCS; 2021-06-04)
PROC: 5A1935Z Respiratory Ventilation, Less than 24 Consecutive Hours (ICD-10-PCS; 2021-06-05)
PROC: 5A1935Z Respiratory Ventilation, Less than 24 Consecutive Hours (ICD-10-PCS; 2021-06-06)
DX: J86.9 Pyothorax without fistula (principal); J96.01 Acute respiratory failure with hypoxia; I26.99 Other pulmonary embolism without acute cor pulmonale; I50.43 Acute on chronic combined systolic (congestive) and diastolic (congestive) heart failure; R57.9 Shock, unspecified; J91.8 Pleural effusion in other conditions classified elsewhere; J18.9 Pneumonia, unspecified organism; I42.9 Cardiomyopathy, unspecified; I13.0 Hypertensive heart and chronic kidney disease with heart failure and stage 1 through stage 4 chronic kidney disease, or unspecified chronic kidney disease; D63.1 Anemia in chronic kidney disease; I21.A1 Myocardial infarction type 2; N17.9 Acute kidney failure, unspecified; J98.11 Atelectasis; N18.9 Chronic kidney disease, unspecified; Z20.822 Contact with and (suspected) exposure to COVID-19; Z87.891 Personal history of nicotine dependence; Z51.5 Encounter for palliative care
CPT/HCPCS: 32555; 36415; 36569; 36600; 71045; 71046; 71250; 71260; 71275; 76604; 80048; 80053; 80202; 81001; 82565; 82570; 82805; 82962; 83735; 83880; 83986; 84132; 84155; 84300; 84484; 85014; 85018; 85025; 85610; 85730; 86703; 86850; 86900; 86901; 86920; 87040; 87070; 87075; 87077; 87081; 87205; 87426; 89051; 93005; 93306; 93970; 94002; 94003; 94640; 96361; 96365; 96367; 96375; 96376; 97110; 97116; 97163; 97530; 99291; A4565; C9113; G0378; J0330; J1100; J2250; J2405; J2543; J3480; J3490; J7060; P9047